=== PATIENT | female | born 1970 | race Caucasian/White ===

== ENCOUNTER 2021-06-01 02:36 | Emergency (ER) | payer BC ==
[~2021-06-01] VITALS: Ht 154.9 cm; Wt 75.7 kg
[~2021-06-01 02:36] MED LIST: BUPROPION HCL150 MG PO; CELEXA20 MG PO; COLACE100 MG PO; DITROPAN 5 MG TA5 MG PO; FISH OIL 1,0001 EACH PO; MYCOLOG II OINT15 GM TOP; NORCO 7.5-3251 EACH PO; PERCOCET 5/325 T1 EA PO; PRILOSEC OTC20 MG PO; ULTRAM50 MG PO
[2021-06-01 03:24] LABS: HEMOGLOBIN 14.3 gm/dl (12.3-15.3); RED BLOOD COUNT 5.12 M/UL (4.00-5.10); WHITE BLOOD COUNT 9.9 K/UL (4.5-11.0)
[2021-06-01 03:50] LABS: BUN/CREATININE RATIO 9 (0-10)
[2021-06-01] MEDS ORDERED: ATORVASTATIN CA20 MG PO (16:16)
== END 2021-06-01 17:59 | disposition home or self-care (01) ==
LOC: ER1 02:36 → CDU 04:47 → ER1 04:47 → CDU 11:31
PROVIDERS: Physician Assistant
DX: R07.89 Other chest pain (principal); K21.9 Gastro-esophageal reflux disease without esophagitis; F17.210 Nicotine dependence, cigarettes, uncomplicated; Z87.442 Personal history of urinary calculi; Z90.49 Acquired absence of other specified parts of digestive tract; Z20.822 Contact with and (suspected) exposure to COVID-19
CPT/HCPCS: ECHO; 71045; 78452; 80053; 80061; 82550; 82553; 83874; 83880; 84484; 85025; 85379; 85610; 85730; 93005; 93017; 93306; 99285; A9502; G0378; J2785; U0002